=== PATIENT | female | born 1935 | race Caucasian/White ===

== ENCOUNTER → 2016-12-05 | Outpatient (CLI) | payer MEDICARE, BC | LOC: MW.CHPOD 08:00 | PROVIDERS: ATTEND Podiatrist Foot & Ankle Surgery | DX: R26.9 Unspecified abnormalities of gait and mobility (principal); M20.41 Other hammer toe(s) (acquired), right foot; M20.42 Other hammer toe(s) (acquired), left foot; M21.40 Flat foot [pes planus] (acquired), unspecified foot; B35.1 Tinea unguium; I73.9 Peripheral vascular disease, unspecified; M79.673 Pain in unspecified foot; L85.9 Epidermal thickening, unspecified | CPT/HCPCS: 11721; G0463 ==

== ENCOUNTER → 2017-02-06 | Outpatient (CLI) | payer MEDICARE, BC | LOC: MW.CHPOD 08:00 | PROVIDERS: ATTEND Podiatrist Foot & Ankle Surgery | DX: R26.9 Unspecified abnormalities of gait and mobility (principal); M20.41 Other hammer toe(s) (acquired), right foot; M20.42 Other hammer toe(s) (acquired), left foot; M21.40 Flat foot [pes planus] (acquired), unspecified foot; B35.1 Tinea unguium; M79.673 Pain in unspecified foot; I73.9 Peripheral vascular disease, unspecified | CPT/HCPCS: 11721; G0463 ==